=== PATIENT | male | born 1955 | race Caucasian/White ===

== ENCOUNTER 2019-05-30 11:07 | Day surgery (SDC) | payer OTHER ==
[~2019-05-30] VITALS: Ht 167.6 cm; Wt 74.2 kg
[~2019-05-30 11:07] MED LIST: AMLO5; ASPI325; ATOR80; GEMF600; JARDIANCE10 MG; LOSARTAN-HCTZ1 EAC1; METF500; VICTOZA 3-0.6 MG/0.1; Viagra100 MG
== END 2019-05-30 14:00 | disposition home or self-care (01) ==
LOC: ORSCSDS 11:07
PROVIDERS: Student in an Organized Health Care Education/Training Program
PROC: 0DBL8ZX Excision of Transverse Colon, Via Natural or Artificial Opening Endoscopic, Diagnostic (ICD-10-PCS; principal; 2019-05-30 12:30)
DX: Z12.11 Encounter for screening for malignant neoplasm of colon (principal); D12.3 Benign neoplasm of transverse colon; K57.30 Diverticulosis of large intestine without perforation or abscess without bleeding; I10 Essential (primary) hypertension; K64.8 Other hemorrhoids; E11.9 Type 2 diabetes mellitus without complications; Z79.899 Other long term (current) drug therapy
CPT/HCPCS: 82947; 88305; J2704; J7120

== ENCOUNTER 2020-05-24 10:18 | Inpatient (IN) | payer OTHER, SELFPAY ==
[~2020-05-24] VITALS: Ht 167.6 cm; Wt 80.7 kg
[~2020-05-24 10:18] MED LIST changes: -AMLO5; -ASPI325; -ATOR80; -GEMF600; -JARDIANCE10 MG; +JARDIANCE10 MG PO; -LOSARTAN-HCTZ1 EAC1; -METF500; -VICTOZA 3-0.6 MG/0.1
[2020-05-24 10:56] LABS: BASOPHILS ABSOLUTE AUTO 0.13 K/mm3 (0.00-0.23); BASOPHILS PERCENT AUTO 1 % (0-2); EOSINOPHILS PERCENT AUTO 3 % (0-6); Hematocrit 40.6 % (37.0-53.0); Hemoglobin 13.2 g/dL (13.5-17.5); IMMATURE GRAN ABSOLUTE AUTO 0.09 K/mm3 (0.00-0.10); IMMATURE GRAN PERCENT AUTO 1 % (0-1); LYMPHOCYTES ABSOLUTE AUTO 1.27 K/mm3 (0.84-5.20); LYMPHOCYTES PERCENT AUTO 14 % (21-46); MONOCYTES ABSOLUTE AUTO 0.78 K/mm3 (0.16-1.47); MONOCYTES PERCENT AUTO 9 % (4-13); Mean Corpuscular HGB 29.3 pg (26.0-34.0); Mean Corpuscular HGB Conc 32.5 g/dL (31.5-36.5); Mean Corpuscular Volume 90 fL (80-100); Mean Platelet Volume 9.1 fL (9.1-12.4); NEUTROPHILS ABSOLUTE AUTO 6.51 K/mm3 (1.96-9.15); NEUTROPHILS PERCENT AUTO 72 % (41-73); Platelet Count 359 K/mm3 (150-400); RDW Coefficient Variation 13.4 % (11.7-14.2); RDW Standard Deviation 43.8 fL (35.1-46.3); Red Blood Cell Count 4.51 M/mm3 (4.30-5.90); White Blood Cell Count 9.08 K/mm3 (4.00-11.30)
[2020-05-24 11:16] LABS: Alanine Aminotransfer (ALT/SGP 28 U/L (12-78); Albumin, Blood 3.9 g/dL (3.4-5.0); Albumin/Globulin Ratio 0.8 (0.8-1.8); Alk Phos 111 U/L (50-136); Anion Gap 8 mmol/L (6-16); Aspartate Aminotrans (AST/SGOT 31 U/L (12-37); Bilirubin, Total 0.4 mg/dL (0.1-1.0); Blood Urea Nitrogen 23 mg/dL (8-24); CO2, Blood 23 mmol/L (21-32); Calcium, Blood 9.9 mg/dL (8.5-10.1); Chloride, Blood 109 mmol/L (98-108); Creatinine, Blood 0.88 mg/dL (0.60-1.20); Globulin, Blood 4.7 g/dL (2.2-4.0); Glomerular Filtration Rate >60 (60-); Glucose, Blood 119 mg/dL (70-99); Potassium, Blood 4.3 mmol/L (3.5-5.5); Sodium, Blood 140 mmol/L (136-145); Total Protein, Blood 8.6 g/dL (6.4-8.2)
[2020-05-24 11:17] LABS: Troponin I <0.015 ng/mL (0.000-0.040)
[2020-05-24 12:27] LABS: Influenza A, PCR NEGATIVE (NEGATIVE); Influenza B, PCR NEGATIVE (NEGATIVE); Resp Syncytial Virus, PCR NEGATIVE (NEGATIVE); SARS-Cov-2 (COVID-19) PCR, MMC NEGATIVE (NEGATIVE)
[2020-05-25 05:17] LABS: BASOPHILS PERCENT AUTO 1 % (0-2); EOSINOPHILS PERCENT AUTO 3 % (0-6); Hematocrit 35.4 % (37.0-53.0); Hemoglobin 11.7 g/dL (13.5-17.5); IMMATURE GRAN ABSOLUTE AUTO 0.07 K/mm3 (0.00-0.10); IMMATURE GRAN PERCENT AUTO 1 % (0-1); LYMPHOCYTES ABSOLUTE AUTO 1.08 K/mm3 (0.84-5.20); LYMPHOCYTES PERCENT AUTO 11 % (21-46); MONOCYTES ABSOLUTE AUTO 0.87 K/mm3 (0.16-1.47); MONOCYTES PERCENT AUTO 9 % (4-13); Mean Corpuscular HGB 29.3 pg (26.0-34.0); Mean Corpuscular HGB Conc 33.1 g/dL (31.5-36.5); Mean Corpuscular Volume 89 fL (80-100); Mean Platelet Volume 9.1 fL (9.1-12.4); NEUTROPHILS ABSOLUTE AUTO 7.53 K/mm3 (1.96-9.15); NEUTROPHILS PERCENT AUTO 76 % (41-73); Platelet Count 349 K/mm3 (150-400); RDW Coefficient Variation 13.4 % (11.7-14.2); RDW Standard Deviation 43.5 fL (35.1-46.3); Red Blood Cell Count 3.99 M/mm3 (4.30-5.90); White Blood Cell Count 9.95 K/mm3 (4.00-11.30)
[2020-05-25 05:42] LABS: Anion Gap 7 mmol/L (6-16); Blood Urea Nitrogen 27 mg/dL (8-24); Bun/Creatinine Ratio 27.6 (12.0-20.0); CO2, Blood 24 mmol/L (21-32); Calcium, Blood 9.3 mg/dL (8.5-10.1); Chloride, Blood 107 mmol/L (98-108); Creatinine, Blood 0.98 mg/dL (0.60-1.20); Glomerular Filtration Rate >60 (60-); Glucose, Blood 131 mg/dL (70-99); Potassium, Blood 4.4 mmol/L (3.5-5.5); Sodium, Blood 138 mmol/L (136-145)
[2020-05-25 05:44] LABS: Troponin I <0.015 ng/mL (0.000-0.040)
[2020-05-25] MEDS ORDERED: Acetaminophen325 M1 PO (12:43)
[2020-05-25] MEDS ORDERED: AZIT500 PO (12:45)
[2020-05-25] MEDS ORDERED: CEFP200 PO (12:46)
[2020-05-25] MEDS ORDERED: CODEINE-GUAIFE120 M1 PO (12:47)
[2020-05-25] MEDS ORDERED: CRANBERRY CONC1 EAC1 PO (12:49)
[2020-05-25] MEDS ORDERED: FAMO20 PO (12:50)
[2020-05-25] MEDS ORDERED: FURO20 PO (12:50)
[2020-05-25] MEDS ORDERED: HYDRA25 PO (12:51)
[2020-05-25] MEDS ORDERED: NICO21TP TOP (12:52)
[2020-05-25] MEDS ORDERED: ONDA4ODT MM (12:53)
== END 2020-05-25 16:18 | disposition home or self-care (01) | DRG 196 ==
LOC: ER 10:18 → MEDS 16:24 → ENPENDDIS 05-25 10:43 → MEDS 05-25 16:18
PROVIDERS: Emergency Medicine; ADMIT Family Medicine
DX: J84.9 Interstitial pulmonary disease, unspecified (principal); J96.01 Acute respiratory failure with hypoxia; J81.1 Chronic pulmonary edema; Z79.82 Long term (current) use of aspirin; E11.9 Type 2 diabetes mellitus without complications; I10 Essential (primary) hypertension; E78.00 Pure hypercholesterolemia, unspecified; Z20.822 Contact with and (suspected) exposure to COVID-19; Z87.891 Personal history of nicotine dependence; Z98.52 Vasectomy status; Z79.84 Long term (current) use of oral hypoglycemic drugs; I16.0 Hypertensive urgency
CPT/HCPCS: 0241U; 36415; 71045; 71260; 80048; 80053; 82947; 83605; 83735; 83880; 84145; 84443; 84484; 85025; 85379; 85651; 93005; 93010; 93306; 99285-25; A9270; J0360; J0696; J1650; J1940; J7030; Q9967

== ENCOUNTER 2020-06-11 13:34 | Inpatient (IN) | payer OTHER ==
[~2020-06-11] VITALS: Ht 175.3 cm; Wt 78.0 kg
[~2020-06-11 13:34] MED LIST changes: +AZIT500 PO; +Acetaminophen325 M1 PO; +CEFP200 PO; +CODEINE-GUAIFE120 M1 PO; +CRANBERRY CONC1 EAC1 PO; +FAMO20 PO; +FURO20 PO; +HYDRA25 PO; +NICO21TP TOP; +ONDA4ODT MM
[2020-06-11 14:37] LABS: BASOPHILS ABSOLUTE AUTO 0.19 K/mm3 (0.00-0.23); BASOPHILS PERCENT AUTO 1 % (0-2); EOSINOPHILS ABSOLUTE AUTO 0.31 K/mm3 (0.00-0.68); EOSINOPHILS PERCENT AUTO 2 % (0-6); Hematocrit 35.2 % (37.0-53.0); Hemoglobin 11.6 g/dL (13.5-17.5); IMMATURE GRAN ABSOLUTE AUTO 0.15 K/mm3 (0.00-0.10); IMMATURE GRAN PERCENT AUTO 1 % (0-1); LYMPHOCYTES ABSOLUTE AUTO 0.71 K/mm3 (0.84-5.20); LYMPHOCYTES PERCENT AUTO 5 % (21-46); MONOCYTES ABSOLUTE AUTO 1.46 K/mm3 (0.16-1.47); MONOCYTES PERCENT AUTO 9 % (4-13); Mean Corpuscular HGB 29.2 pg (26.0-34.0); Mean Corpuscular Volume 89 fL (80-100); Mean Platelet Volume 8.7 fL (9.1-12.4); NEUTROPHILS ABSOLUTE AUTO 12.87 K/mm3 (1.96-9.15); NEUTROPHILS PERCENT AUTO 82 % (41-73); Platelet Count 420 K/mm3 (150-400); RDW Coefficient Variation 14.3 % (11.7-14.2); RDW Standard Deviation 46.3 fL (35.1-46.3); Red Blood Cell Count 3.97 M/mm3 (4.30-5.90); White Blood Cell Count 15.69 K/mm3 (4.00-11.30)
[2020-06-11 14:57] LABS: Alanine Aminotransfer (ALT/SGP 16 U/L (12-78); Albumin, Blood 2.8 g/dL (3.4-5.0); Albumin/Globulin Ratio 0.5 (0.8-1.8); Alk Phos 98 U/L (50-136); Anion Gap 11 mmol/L (6-16); Aspartate Aminotrans (AST/SGOT 28 U/L (12-37); Bilirubin, Total 0.4 mg/dL (0.1-1.0); Blood Urea Nitrogen 48 mg/dL (8-24); Bun/Creatinine Ratio 39.7 (12.0-20.0); CO2, Blood 18 mmol/L (21-32); Calcium, Blood 9.8 mg/dL (8.5-10.1); Chloride, Blood 108 mmol/L (98-108); Creatinine, Blood 1.21 mg/dL (0.60-1.20); Globulin, Blood 5.1 g/dL (2.2-4.0); Glomerular Filtration Rate >60 (60-); Glucose, Blood 105 mg/dL (70-99); Potassium, Blood 4.7 mmol/L (3.5-5.5); Sodium, Blood 137 mmol/L (136-145); Total Protein, Blood 7.9 g/dL (6.4-8.2); Troponin I <0.015 ng/mL (0.000-0.040)
[2020-06-11] MEDS ORDERED: MOXI400 PO (15:50)
[2020-06-12 04:38] LABS: BASOPHILS PERCENT AUTO 1 % (0-2); EOSINOPHILS ABSOLUTE AUTO 0.63 K/mm3 (0.00-0.68); EOSINOPHILS PERCENT AUTO 5 % (0-6); Hematocrit 33.8 % (37.0-53.0); Hemoglobin 10.8 g/dL (13.5-17.5); IMMATURE GRAN ABSOLUTE AUTO 0.12 K/mm3 (0.00-0.10); IMMATURE GRAN PERCENT AUTO 1 % (0-1); LYMPHOCYTES ABSOLUTE AUTO 0.89 K/mm3 (0.84-5.20); LYMPHOCYTES PERCENT AUTO 6 % (21-46); MONOCYTES ABSOLUTE AUTO 1.38 K/mm3 (0.16-1.47); MONOCYTES PERCENT AUTO 10 % (4-13); Mean Corpuscular Volume 91 fL (80-100); Mean Platelet Volume 8.7 fL (9.1-12.4); NEUTROPHILS ABSOLUTE AUTO 10.89 K/mm3 (1.96-9.15); NEUTROPHILS PERCENT AUTO 77 % (41-73); Platelet Count 384 K/mm3 (150-400); RDW Coefficient Variation 14.4 % (11.7-14.2); RDW Standard Deviation 47.7 fL (35.1-46.3); Red Blood Cell Count 3.72 M/mm3 (4.30-5.90); White Blood Cell Count 14.11 K/mm3 (4.00-11.30)
[2020-06-12 05:16] LABS: Bun/Creatinine Ratio 37.2 (12.0-20.0); Calcium, Blood 9.4 mg/dL (8.5-10.1); Creatinine, Blood 1.29 mg/dL (0.60-1.20); Potassium, Blood 4.3 mmol/L (3.5-5.5)
--- NOTE | 2020-06-12 05:42 | NUR ---
SHIFT SUMMARY- PT. NEW ADMIT FROM ED, ARRIVED VIA STRETCHER. A&OX4, C/O WEAKNESS AND SOB WITH EXERTION. ON 4L OF O2 WITH SATS AT 91-93%, SBA TO THE BATHROOM. PT. HAD NO COMPLAINTS DURING THE NIGHT. RESTED QUIETLY IN BED T/O THE NIGHT, NO APPARENT DISTRESS NOTED. IV FLUIDS INFUSING W/SCHEDULED ABX'S, TOLERATING WELL. VSS. CALL LIGHT WITHIN REACH AND SIDE RAILS UPX2. WILL CONT TO MONITOR.
[2020-06-12 13:12] LABS: Influenza A, PCR NEGATIVE (NEGATIVE); Influenza B, PCR NEGATIVE (NEGATIVE); Resp Syncytial Virus, PCR NEGATIVE (NEGATIVE); SARS-Cov-2 (COVID-19) PCR, MMC NEGATIVE (NEGATIVE)
--- NOTE | 2020-06-12 18:01 | NUR ---
PATIENT A/OX4, UP WITH SBA TO BATHROOM. SOB WITH ACTIVITY AND AT REST AT TIMES. 10LO2 VIA OXIMIZER TO MAINTAIN SATS. VSS, SR WITH PAC'S ON TELE IN THE 80'S. DENIES ANY PAIN. COVID/FLU NEGATIVE. 20G IV TO L AC WNL AND SL BETWEEN ABX. LASIX GIVEN THIS AM WITH GOOD OUTPUT. LUNGS WITH CRACKLES IN THE BASES, NONPRODUCTIVE COUGH. ACHS BLOOD SUGARS, TOLERATING ADA DIET. PLANS TO TRANSFER TO PCU WHEN BED AVAILABLE.
--- NOTE | 2020-06-12 19:49 | NUR ---
1944 PT MOVED VIA BED AND ALL PERSONAL BELONGINGS WITH AT SIDE TO PCU-10 WITH PORTABLE O2 TANK; PTS CHART AND ALL MEDS TAKEN TO PCU; CT RN AT SIDE IN PCU.
--- NOTE | 2020-06-13 05:15 | NUR ---
SHIFT SUMMARY PT TRANSFERED FROM MEDICAL FLOOR APPROXIMATELY @ 2150; SPOUSE AT BEDSIDE; TO SEE PT DUE TO INCREASED O2 REQUIREMENTS; PT A&O X 3-4; IRRITABLE AT TIMES; DENIES CHEST PAIN; VSS; PT WAS UNABLE TO TOLERATE AIRVO; O2 SATS >93 ON BIPAP ON CPAP SETTING; C/O MASK AFTER A FEW HOURS AND REQUIRING BREAK; 15L OXYMIZER USED; USES URINAL IN BED; WASH RAG AND TOWEL BROUGHT TO PT TO CLEAN UP; CURRENTLY RESTING IN BED; NO DISTRESS NOTED; CALL LIGHT IN REACH; BED IN LOWEST POSITION; WILL CONTINUE TO MONITOR CLOSELY UNTIL HAND OFF TO DAY SHIFT RN.
[2020-06-13 05:19] LABS: BASOPHILS PERCENT AUTO 1 % (0-2); EOSINOPHILS ABSOLUTE AUTO 0.01 K/mm3 (0.00-0.68); EOSINOPHILS PERCENT AUTO 0 % (0-6); Hematocrit 34.7 % (37.0-53.0); Hemoglobin 11.3 g/dL (13.5-17.5); IMMATURE GRAN ABSOLUTE AUTO 0.12 K/mm3 (0.00-0.10); IMMATURE GRAN PERCENT AUTO 1 % (0-1); LYMPHOCYTES ABSOLUTE AUTO 0.31 K/mm3 (0.84-5.20); LYMPHOCYTES PERCENT AUTO 2 % (21-46); MONOCYTES ABSOLUTE AUTO 0.54 K/mm3 (0.16-1.47); MONOCYTES PERCENT AUTO 4 % (4-13); Mean Corpuscular HGB 29.2 pg (26.0-34.0); Mean Corpuscular HGB Conc 32.6 g/dL (31.5-36.5); Mean Corpuscular Volume 90 fL (80-100); Mean Platelet Volume 8.7 fL (9.1-12.4); NEUTROPHILS ABSOLUTE AUTO 13.76 K/mm3 (1.96-9.15); NEUTROPHILS PERCENT AUTO 93 % (41-73); Platelet Count 436 K/mm3 (150-400); RDW Coefficient Variation 14.3 % (11.7-14.2); RDW Standard Deviation 46.3 fL (35.1-46.3); Red Blood Cell Count 3.87 M/mm3 (4.30-5.90); White Blood Cell Count 14.84 K/mm3 (4.00-11.30)
[2020-06-13 05:42] LABS: Anion Gap 10 mmol/L (6-16); Blood Urea Nitrogen 46 mg/dL (8-24); Bun/Creatinine Ratio 38.7 (12.0-20.0); CO2, Blood 21 mmol/L (21-32); Calcium, Blood 9.6 mg/dL (8.5-10.1); Chloride, Blood 110 mmol/L (98-108); Creatinine, Blood 1.19 mg/dL (0.60-1.20); Glomerular Filtration Rate >60 (60-); Glucose, Blood 181 mg/dL (70-99); Potassium, Blood 4.5 mmol/L (3.5-5.5); Sodium, Blood 141 mmol/L (136-145); Vancomycin, Trough 19.3 ug/mL (5.0-10.0)
--- NOTE | 2020-06-13 19:28 | NUR ---
SUMMARY PT IS A&O X3, VSS, ON AIRVO 50 L FIO2 69%, SPO2 >93%. PT WAS UP TO THE CHAIR FOR A FEW HOURS TODAY & WAS ABLE TO SPONGE BATHE IN FRONT OF THE SINK WHILE WEARING THE AIRVO, TOLERATED WNL. ORLANDO BURRELL COMPLETED, PT'S IN TO VISIT THIS EVENING. NO OTHER ACUTE CHANGES NOTED. REPORT GIVEN TO LEOPOLDO ROJAS. CALL LIGHT IN REACH
[2020-06-14 03:51] LABS: BASOPHILS ABSOLUTE AUTO 0.04 K/mm3 (0.00-0.23); BASOPHILS PERCENT AUTO 0 % (0-2); EOSINOPHILS ABSOLUTE AUTO 0.01 K/mm3 (0.00-0.68); EOSINOPHILS PERCENT AUTO 0 % (0-6); Hematocrit 31.1 % (37.0-53.0); Hemoglobin 10.1 g/dL (13.5-17.5); IMMATURE GRAN ABSOLUTE AUTO 0.16 K/mm3 (0.00-0.10); IMMATURE GRAN PERCENT AUTO 1 % (0-1); LYMPHOCYTES ABSOLUTE AUTO 0.53 K/mm3 (0.84-5.20); LYMPHOCYTES PERCENT AUTO 4 % (21-46); MONOCYTES ABSOLUTE AUTO 0.57 K/mm3 (0.16-1.47); MONOCYTES PERCENT AUTO 4 % (4-13); Mean Corpuscular HGB 28.8 pg (26.0-34.0); Mean Corpuscular HGB Conc 32.5 g/dL (31.5-36.5); Mean Corpuscular Volume 89 fL (80-100); Mean Platelet Volume 8.8 fL (9.1-12.4); NEUTROPHILS ABSOLUTE AUTO 11.86 K/mm3 (1.96-9.15); NEUTROPHILS PERCENT AUTO 90 % (41-73); Platelet Count 420 K/mm3 (150-400); RDW Standard Deviation 45.2 fL (35.1-46.3); Red Blood Cell Count 3.51 M/mm3 (4.30-5.90); White Blood Cell Count 13.17 K/mm3 (4.00-11.30)
[2020-06-14 04:10] LABS: Anion Gap 8 mmol/L (6-16); Blood Urea Nitrogen 45 mg/dL (8-24); CO2, Blood 23 mmol/L (21-32); Calcium, Blood 9.8 mg/dL (8.5-10.1); Chloride, Blood 108 mmol/L (98-108); Creatinine, Blood 0.87 mg/dL (0.60-1.20); Glomerular Filtration Rate >60 (60-); Glucose, Blood 237 mg/dL (70-99); Potassium, Blood 4.6 mmol/L (3.5-5.5); Sodium, Blood 139 mmol/L (136-145)
--- NOTE | 2020-06-14 05:48 | NUR ---
SHIFT SUMMARY PT A&O X 4; SPOUSE AT BEDSIDE FIRST HOUR OF SHIFT; DENIES CHEST PAIN; VSS; O2 SATS >93 ON AIRVO; PT EDUCATION PROVIDED ON SWALLOW PRECAUTIONS; PT DENIES NEEDS AND IS ARGUMENTATIVE REGARDING INSTRUCTION; USES URINAL IN BED; PT SLEPT SEVERAL HOURS IN BETWEEN INTERVENTIONS; CALL LIGH IN REACH; BED IN LOWEST POSITION; WILL CONTINUE TO MONORINTOR SLOSELY UNTIL HAND OFF TO DAY SHIFT RN.
--- NOTE | 2020-06-14 12:50 | NUR ---
RESP STATUS CONT BIOX ALARM WAS GOING OFF, SPO2 OF 84% SHOWING ON THE MONITOR, PT WAS SHALLOW BREATHING AND HALF ASLEEP, PT RESPONSIVE, ENC TO DEEP BREATHE & COUGH, PT STOOD @ BEDSIDE PER HIS REQUEST TO "TAKE IN MORE AIR", RT IN ROOM, FIO2 HAD BEEN TURNED DOWN TO 40% PER PREVIOUSLY THIS AM, FIO2 INCREASED AT THIS TIME, PT CONTINUED TO COUGH & STRUGGLED TO BRING HIS SATS UP, BREATHING RX GIVEN PER RT, PT ASSISTED BACK TO BED, FIO2 INCREASED TO 100% PER RT & 60 L VIA AIRVO, PT REFUSING BIPAP. NOTIFIED PER RT, PT FINALLY STARTED TO STABILIZE, HE WAS ABLE TO COUGH UP THICK, CLEAR MUCOUS. CURRENT AIRVO SETTINGS ARE 60 L FIO2 84%. PT IS AWAKE, ALERT & ORIENTED X3,RESTING IN BED, CALL LIGHT IN REACH, WCTM AND SLOWLY TITRATE FIO2 BACK DOWN PER VERBAL ORDER FROM .
[2020-06-14 18:32] LABS: Source, Urine Voided
[2020-06-14 18:34] LABS: Appearance, Urine Clear (Clear); Bilirubin, Urine Neg (Neg); Blood, Urine Neg (Neg); Color, Urine Yellow (P-Yellow); Glucose Qualitative, Urine 4+ (Neg); Ketones, Urine Neg (Neg); Leukocyte Esterase, Urine Neg (Neg); Nitrite, Urine Neg (Neg); Protein, Urine 2+ (Neg); Urobilinogen, Urine NORM (Normal)
[2020-06-14 18:46] LABS: Bacteria Few /hpf; Hyaline Casts 0-2 /lpf (0-2); Red Blood Cells, Urine 0-2 /hpf (0-2); Squamous Epithelial Cells Few /hpf (Few); White Blood Cells, Urine 0-2 /hpf (0-5)
--- NOTE | 2020-06-15 06:48 | NUR ---
SHIFT SUMMARY PT A&O X 4; DENIES CHEST PAIN; VSS; O2 SATS >93 ON AIRVO 60 / 60; PT MAINTAINED SATS WELL T/O SHIFT; POWERGLIDE PLACED BY FINISH CARPENTER IN ALEISHA; USES URINAL IN BED; MEDS IN APPLESAUCE W/ NO ISSUE; NO ACUTE CHANGES; CALL LIGHT IN REACH; BED IN LOWEST POSITION; WILL CONTINUE TO MONITOR CLOSELY UNTIL HAND OFF TO DAY SHIFT RN.
[2020-06-15 12:09] LABS: ANTI-DSDNA ANTIBODIES 3 IU/mL (0-9); ANTI-JO-1 <0.2 AI (0.0-0.9); ANTISCLERODERMA-70 ANTIBODIES <0.2 AI (0.0-0.9); RNP ANTIBODIES 0.3 AI (0.0-0.9); SJOGREN'S ANTI-SS-A <0.2 AI (0.0-0.9); SJOGREN'S ANTI-SS-B <0.2 AI (0.0-0.9)
--- NOTE | 2020-06-15 18:30 | NUR ---
SUMMARY PT HAS DONE WELL TODAY. HE HAS BEEN UP IN THE CHAIR MOST OF THE SHIFT. CURRENT AIRVO SETTINGS ARE 60 L 50% FIO2, SPO2 BETWEEN 90-94%, OTHER VSS. RESP UNLABORED AT REST, DYSPNEA W/ACTIVITY. DECREASED APPETITE NOTED, VOIDING WNL. PALLIATIVE CARE CONSULT PLACED, CASE MANAGEMENT WAS IN TO SPEAK WITH PT TODAY. WCTM & REPORT TO NOC RN. CALL LIGHT IN REACH, IS AT THE BEDSIDE.
[2020-06-16 05:08] LABS: PCO2 Arterial 43.7 mmHg (35-45); PO2 Arterial 59.5 mmHg (80-100); pH Blood Arterial 7.35 (7.35-7.45)
--- NOTE | 2020-06-16 06:03 | NUR ---
SHIFT SUMMARY PT IS ALERT AND ORIENTED. THERE HAVE BEEN NO ACUTE CHANGES AND VITALS HAVE BEEN STABLE. PT HAS BEEN SATING >92% ON AIRVO WITH 60LPM AND 38% FIO2. PT IS ON SWALLOW PRECAUTIONS AND HAS NOT HAD ANY ASPIRATION PROBLEMS THROUGHTOUT THE NIGHT.
--- NOTE | 2020-06-16 17:51 | NUR ---
SHIFT SUMMARY PT ALERT AND ORIENTED. BP STABLE. HR STABLE. O2 SATS HAVE REMAINED ABOVE 90% ON 50L ARIVO 40% FIO2. PT ABLE TO TOLERATE AMBULATING TO THE BATHROOM AND TAKING A SHOWER. PT DID HAVE BLOODY SPUTUM THIS AM, BUT HAS NOT HAD ANY OTHER SPUTUM PRODUCTION THIS SHIFT. DR. PROCTOR AWARE. PG SALINE LOCKED. PT DENIES ANY PAIN. WILL CONTINUE TO MONITOR AND REPORT TO ONCOMING RN. CALL LIGHT IN REACH.
--- NOTE | 2020-06-17 05:09 | NUR ---
SHIFT SUMMARY PT A&OX4. SP02>90% ON AIRVO 50L. PT SOB W/ ANY EXERTION. PT HAS NO TELEMETRY. PT DENIES PAIN. PT USED URINAL TO VOID. MEDS WHOLE IN APPLESAUCE. PT SLEPT T/O NIGHT. AT BEGINNING OF SHIFT, PT'S , WILLARD, CALLED FOR UPDATE. PT'S STATED CONCERNS W/ BRONCHOSCOPY, STATING SHE HAS BEEN RESEARCHING ALTERANTIVE PROCEDURES AND WOULD LIKE TO DISCUSS THEM WITH THE OB/GYN DOCTOR PRIOR TO PROCEDURE. CALL LIGHT IN REACH. WILL GIVE REPORT TO ONCOMING NURSE.
--- NOTE | 2020-06-17 09:48 | NUR ---
ASSUMED CARE FROM LEOPOLDO RN PT WAS SLEEPING DURING MORNING REPORT. PT SOON WOKE AFTER FOR MORNING MEDICATIONS. PT WAS GIVEN MEDS IN APPLESAUCE THIS MORNING. PT WAS POSSIBLY SCHEDULED FOR A BRONCHOSCOPY THIS MORNING BUT PULMONOLGY DECIDED AGAINST THIS SINCE PT'S O2 NEEDS HAVE DECREASED. PT IS NOW RESTING IN BED WATCHING TV.
[2020-06-17 14:11] LABS: ANTIMYELOPEROXIDASE (MPO) ABS <9.0 U/mL (0.0-9.0)
--- NOTE | 2020-06-17 15:09 | NUR ---
Spiritual care visit conducted. Patient is sitting up in bde and alert. Patient tells me about his medical conditions and the struggle he has had with depression because of the limitations his inability to breath and ambulate. He told me personal information regarding these struggles. He also told me about his love [place] the [place]. We discuss his marcellus in God but not in church. While we are talking patient's spouse, Deirdre enters the rm and joins the conversation and patient states that she is the driving spiritual force in the family. I normalize the struggle and the their feelings about that struggle, reinforce helpful attitudes, explore sources of meaning and purpose, and provide therapeutic listening, spiritual guidance and prayer. Patient responds well and shows signs of improved hope. I will continue to remain available to patient and family.
--- NOTE | 2020-06-17 18:02 | NUR ---
SHIFT SUMMARY PT HAS REMAINED ON AIRVO BUT HAS BEEN TITRATED DOWN TO 45L AND 35% FIO2 THROUGHOUT THE DAY. PT HAS BEEN VISITING WITH HIS ON AND OFF THIS AFTERNOON. PT WAS ABLE TO WALK TO THE BATHROOM THIS AFTERNOON TO HAVE A BM AND WAS NOT SHORT OF BREATH BUT HIS O2 SATURATION DROPPED BUT HE QUICKLY RECOVERED AFTER SITTING DOWN. PT HAS BEEN IN THE CHAIR THIS EVENING HAVING DINNER AND WATCHING TV. VS HAVE BEEN STABLE OTHER THAN THE O2 NEEDS.
--- NOTE | 2020-06-17 19:30 | NUR ---
ASSUMED CARE RECEIVED BEDSIDE REPORT FROM CRYSTAL TRONCOSO; PT A&O X 4; FLAT DISPOSITION; BRAND SALES MANAGER EUSEBIO REMINDED SPOUSE OF VISITING HOURS AND WHEN SHE CAN COME BACK FOR VISITATION; O2 SATS >93 ON AIRVO 45L 35%; DENIES CHEST PAIN; VSS; BELONGINGS AND CALL LIGHT IN REACH; BED IN LOWEST POSITION.
[2020-06-17 21:06] LABS: CCP ANTIBODIES IGG/IGA 5 units (0-19)
--- NOTE | 2020-06-18 05:19 | NUR ---
SHIFT SUMMARY PT A&O X 4; DENIES CHEST PAIN; VSS; O2 SATS >93 ON AIRVO SETTINGS, TITRATED PER RT; USES URINAL IN BED; PT SLEPT SEVERAL HOURS; NO ACUTE CHANGES THIS SHIFT; CALL LIGHT IN REACH; BED IN LOWEST POSITION; WILL CONTINUE TO MONITOR CLOSELY UNTIL HAND OFF TO DAY SHIFT RN.
--- NOTE | 2020-06-18 07:23 | NUR ---
ASSUMED CARE FROM NOC RN PT WAS AWAKE AND PARTICIPATED IN MORNING REPORT. VS STABLE, OXYGEN NEEDS WERE TITRATED DOWN DURING THE NOC SHIFT. PT IS AWAKE, WATCHING TV AND HAVING HIS MORNING COFFEE AT THIS TIME. PT DENIES PAIN AND DISCOMFORT.
--- NOTE | 2020-06-18 17:18 | NUR ---
SHIFT SUMMARY PT BEGAN THE SHIFT ON HIGH FLOW OXYGEN VIA AIRVO, PT HAS BEEN TITRATED DOWN THROUGHOUT THE DAY AND IS NOW ON 3L O2 VIA NC AT REST AND APPROXIMATELY 10L VIA HIGH FLOW NC WITH ACTIVITY. VS STABLE, PT MAINTAINING SATURATION AT OR ABOVE 92% ON 3L NC. PT WAS ABLE TO WORK WITH PHYSICAL THERAPY THIS AFTERNOON. PT HAS RECEIVED VEST THERAPY WITH RESPIRATORY CARE AND HAS A FLUTTER VALVE AT THE BEDSIDE AND HAS BEEN ENCOURAGED TO USE IT. PT REMAINS IN SR HR 70s-80s. PT SITTING IN THE CHAIR AT THIS TIME HAVING DINNER.
--- NOTE | 2020-06-18 19:40 | NUR ---
ASSUMED CARE RECEIVED BEDSIDE REPORT FROM CRYSTAL PHAM; PT SLEEPING; VSS; O2 SATS >93 ON 5L NC; TITRATION NEEDED PRN; NO DISTRESS NOTED; BELONGINGS AND CALL LIGHT IN REACH; BED IN LOWEST POSITION.
--- NOTE | 2020-06-19 04:43 | NUR ---
SHIFT SUMMARY PT A&O X 4; FLAT; DENIES CHEST PAIN; VSS; NO TELE ORDER; O2 SATS >93 ON 5L NC; TITRATED W/ ACTIVITY; RT TO BEDSIDE FOR CPT AND BREATHING TX; INDEPENDENT IN ROOM; SLEPT SEVERAL HOURS IN BETWEEN INTERVENTION; CALL LIGHT IN REACH; BED IN LOWEST POSITION; WILL CONTINUE TO MONITOR CLOSELY UNTIL HAND OFF TO DAY SHIFT RN.
--- NOTE | 2020-06-19 09:46 | NUR ---
ASSUMED CARE FROM [facility] RN PT WAS AWAKE DURING MORNING REPORT AND PARTICIPATED IN REPORT. PT WAS READY TO GET UP AND USE THE BATHROOM AND GET IN THE CHAIR EARLY THIS MORNING FOR BREAKFAST. PT REPORTS PAIN IN HIS BACK AND BOTTOM FROM PREVIOUS INJURIES AND FROM SITTING/LAYING IN BED FOR THE LAST FEW DAYS. PT HAS BEGUN WORKING WITH PHYSICAL AND OCCUPATIONAL THERAPY TO INCREASE ACTIVITY TOLERANCE AND HELP WITH SORENESS. PT HAD LINENS CHANGED AND WORKED WITH RESPIRATORY THERAPY THIS MORNING WELL. PT WATCHING TV IN HIS CHAIR AT THIS TIME
--- NOTE | 2020-06-19 17:51 | NUR ---
SHIFT SUMMARY PT REMAINS ON NC AND HAS SUSTAINED 92% AND ABOVE WITH 5L O2 AT REST AND UP TO 10L FOR ACTIVITY. PT WAS ABLE TO HAVE A SHOWER THIS AFTERNOON AND WAS ABLE TO DO SO WITH SBA. PT HAS WORKED WITH OCCUPATIONAL AND PHYSICAL THERAPY TODAY WELL. BP WAS ELEVATED THIS AFTERNOON, WILL RECHECK OTHERWISE VS STABLE. PT VISITED WITH A FRIEND THIS AFTERNOON. PT HAS BEEN CHANGED TO MEDICAL STATUS. PT IS IN HIS CHAIR RESTING IN HIS ROOM AT THIS TIME
--- NOTE | 2020-06-19 21:26 | NUR ---
ASSUMPTION OF CARE PT RESTING IN BED, AROUSES TO VERBAL STIMULI, ORIENTED x4, VSS ON 5L PER HUMIDIFIED HI-FLOW NC, LUNG SOUNDS CLEAR WITH CRACKLS IN THE BASES. PT DENIES GI/ ISSUES, SWALLOWS PILLS WHOLE WITH APPLESAUCE, MOVES SELF INDEPENDENLTY IN BED. CALL LIGHT WITHIN REACH.
[2020-06-20 04:50] LABS: Albumin, Blood 2.6 g/dL (3.4-5.0); Anion Gap 5 mmol/L (6-16); Blood Urea Nitrogen 58 mg/dL (8-24); Bun/Creatinine Ratio 67.8 (12.0-20.0); CO2, Blood 25 mmol/L (21-32); Calcium, Blood 9.6 mg/dL (8.5-10.1); Chloride, Blood 107 mmol/L (98-108); Creatinine, Blood 0.86 mg/dL (0.60-1.20); Glomerular Filtration Rate >60 (60-); Glucose, Blood 377 mg/dL (70-99); Phosphorus, Blood 3.6 mg/dL (2.5-4.9); Potassium, Blood 4.9 mmol/L (3.5-5.5); Sodium, Blood 137 mmol/L (136-145)
--- NOTE | 2020-06-20 05:52 | NUR ---
SHIFT SUMMARY NO ACUTE CHANGES THIS SHIFT, PT RESTED WELL T/O NIGHT. AWAKE THIS MORNING, ORIENTED x4, VSS ON 5L HUMIDIFIED NC. PT TOLERATING PO INTAKE, SWALLOWS PILLS WHOLE WITH APPLESAUCE. CALL LIGHT WITHIN REACH, PT USING APPROPRIATELY.
--- NOTE | 2020-06-20 07:47 | NUR ---
Received report from night nurse this AM. Pt is awake and a/o x 4 with no complaints at this time. VSS. CBG was elevated but pt denies any s/s of hyperglycemia and reports that it is only ever elevated when he is in the hospital. Pt is resting in bed watching TV with call light in reach.
--- NOTE | 2020-06-20 15:02 | NUR ---
Pt changed to med status and report called to receiving Rn. Pt is aware of transfer and agreeable. went to the store and when she returns we will assist pt to transfer to medical floor.
--- NOTE | 2020-06-20 15:06 | NUR ---
Pt has been a/o x 4 throughout the day with no complaints. He does have a flat affect but denies any pain. He has been working with RT today and has been SATing in the 90's on 4 LPM via NC. This morning he declined a shower but this afternoon when his arrived with clean clothes he was agreeable to get up and get in the shower. After ambulating from the shower chair to the recliner pt O2 Sat went down into the 80's, O2 was turned up to 6LPM and RT was notified, O2 Sat quickly went back up to 90 and RT initiated a TX, charge nurse was made aware. Pt is sitting up in the recliner while the MARINE GEOLOGIST is packing his personal belongings.
--- NOTE | 2020-06-20 15:28 | NUR ---
Pt transferred to room 324 via WC with SOCIAL WORK THERAPIST. All personal belongings sent with the pt and pt stable upon transfer.
--- NOTE | 2020-06-20 16:26 | NUR ---
PT IS A PCU TRANSFER, PT CAME IN DUE TO PNEUMONIA AND HYPOXIA. PMH ARE HTN AND DM. PT IS AC/HS. PT IS RECEIVING BREATHING TX AND O2 OF 4L. PT DESATS WHEN ACTIVITIES, MIGHT NEED TO INCREASE O2. PT IS A 1P ASSIST. PT IS ASPIRATION PRECAUTIONS. PT CAME IN DUE TO SOB, NONPRODUCTIVE COUGH, AND PROGRESSIVE WEAKNESS. PT LIVES WITH , AND AT BEDSIDE TODAY. PT HAS POWEGLIDE ALEISHA DRAWS WELL. PT ALSO RECEIVING CHEST PHYSIO. PT IS ON SOFT ADA DIET. BED IS IN THE LOWEST POSITION AND CALL LIGHT WITHIN REACH.
--- NOTE | 2020-06-21 04:37 | NUR ---
SHIFT SUMMARY NOC [id number] NOTIFIED LESLY ARREOLA CHANGED FROM MED TO HIGH, 1X 9U HUMALOG ADMIN, NO OTHER CHANGES, NO C/O ANY KIND, SLEPT T/O THE NIGHT & AT THIS TIME, CALL LIGHT IN REACH, WILL CONT TO MONITOR UNTIL REPORT GIVEN TO DAY RN.
--- NOTE | 2020-06-21 08:00 | NUR ---
CALLED THE DR FOR INSULIN COVERAGE OF THIS PT. RECEIVED AN ORDER OF 15 UNITS OF SHORT ACTING INSTEAD OF GIVING THE 17 UNITS.
--- NOTE | 2020-06-21 16:48 | NUR ---
SHIFT SUMMARY PT AOX4; INDEPENDENT TO THE BATHROOM. PT IS ON 4L OF O2 VIA NC. PT WILL BE DISCHARGE TOMORROW PER . PT DENIES PAIN OR ANY DISTRESS. BED IS IN THE LOWEST POSITION AND CALL LIGHT WITHIN REACH.
--- NOTE | 2020-06-22 04:43 | NUR ---
SHIFT SUMMARY: VSS. AFEB. 02 SAT 94% ON 4L VIA NC. LSCTA. OCCASIONAL WET SOUNDING, NON-PRODUCTIVE COUGH. DEEP BREATHING TRIGGERS COUGH. ENCOURAGED USE OF FLUTTER VALVE. DENIES CHEST PAIN OR PRESSURE. RESPS EVEN, NON-LABORED AT REST. NO ACUTE EVENTS OVERNIGHT. WCTM.
--- NOTE | 2020-06-22 14:18 | NUR ---
Spiritual care visit conducted. Patient is sitting up in bed and alert. Patient tells me about his personal struggles and how this long season of health issues has affected him negatively. We explore sources of value and meaning and talk about the spiritual/emotional support that maybe needed. Patient explains about his spiritual journey and how he has been more reflective while lying in bed. I normalize his experience, reinforce helpful attitudes and practices and provide spiritual guidance and prayer. Patient responds well and shows signs of being encoraged in his marcellus. I will continue to remain available to patient and family.
--- NOTE | 2020-06-22 17:08 | NUR ---
DISCHARGED HOME WITH PRESENT. BEDSIDE EDUCATION PROVIDED BY HOSPITALIST, OXYGEN SUPPLIER, RESPIRATORY THERAPIST, AND THIS RN. PATIENT AND VERBALIZED UNDERSTANDING OF DISCHARGE INSTRUCTIONS AND FOLLOW-UP. ALL QUESTIONS WERE ANSWERED TO PATIENT AND SATISFACTION. OXYGEN SUPPLIES SENT HOME WITH PATIENT AND MORE TO BE DELIVERED TO HOME THIS EVENING. ALL PERSONAL BELONGINGS IN PATIENT POSSESSION.
== END 2020-06-22 16:44 | disposition home health service (06) | DRG 871 ==
LOC: ER 13:34 → MEDS 18:42 → PCU 06-12 19:41 → MEDS 06-20 15:25
PROVIDERS: Hospitalist; Internal Medicine; Internal Medicine Critical Care Medicine; Internal Medicine Pulmonary Disease; Pharmacist; Physician Assistant; ADMIT Internal Medicine
DX: A41.9 Sepsis, unspecified organism (principal); J18.9 Pneumonia, unspecified organism; J96.01 Acute respiratory failure with hypoxia; Z20.822 Contact with and (suspected) exposure to COVID-19; J84.89 Other specified interstitial pulmonary diseases; R65.20 Severe sepsis without septic shock; E11.9 Type 2 diabetes mellitus without complications; I10 Essential (primary) hypertension; E78.5 Hyperlipidemia, unspecified; K21.9 Gastro-esophageal reflux disease without esophagitis; Z87.891 Personal history of nicotine dependence; Z98.890 Other specified postprocedural states; Z90.49 Acquired absence of other specified parts of digestive tract; Z79.82 Long term (current) use of aspirin; Z79.899 Other long term (current) drug therapy; Z79.84 Long term (current) use of oral hypoglycemic drugs
CPT/HCPCS: 0241U; 36415; 36600; 71045; 71250; 80048; 80053; 80069; 80202; 81001; 82085; 82550; 82803; 82947; 83036; 83520; 83605; 83880; 84145; 84484; 85025; 85651; 86038; 86140; 86200; 86225; 86235; 86431; 86762; 87040; 92526; 92610; 93005; 93010; 94640; 94660; 94667; 94668; 94760; 94761; 94762; 96365; 96366; 96367; 97110; 97161; 97166; 97530; 97535; 99285-25; A9270; C1751; J0692; J1650; J1940; J2920; J3370; J7030; J7050; J7120; J7512

== ENCOUNTER 2020-06-25 18:07 | Inpatient (IN) | payer OTHER ==
[~2020-06-25] VITALS: Ht 167.6 cm; Wt 69.9 kg
[~2020-06-25 18:07] MED LIST changes: +MOXI400 PO
[2020-06-25 20:53] LABS: BASOPHILS ABSOLUTE AUTO 0.06 K/mm3 (0.00-0.23); BASOPHILS PERCENT AUTO 0 % (0-2); EOSINOPHILS ABSOLUTE AUTO 0.01 K/mm3 (0.00-0.68); EOSINOPHILS PERCENT AUTO 0 % (0-6); Hematocrit 35.4 % (37.0-53.0); Hemoglobin 11.6 g/dL (13.5-17.5); IMMATURE GRAN ABSOLUTE AUTO 0.45 K/mm3 (0.00-0.10); IMMATURE GRAN PERCENT AUTO 3 % (0-1); LYMPHOCYTES ABSOLUTE AUTO 0.67 K/mm3 (0.84-5.20); LYMPHOCYTES PERCENT AUTO 4 % (21-46); MONOCYTES ABSOLUTE AUTO 0.35 K/mm3 (0.16-1.47); MONOCYTES PERCENT AUTO 2 % (4-13); Mean Corpuscular HGB 28.8 pg (26.0-34.0); Mean Corpuscular HGB Conc 32.8 g/dL (31.5-36.5); Mean Corpuscular Volume 88 fL (80-100); Mean Platelet Volume 9.3 fL (9.1-12.4); NEUTROPHILS PERCENT AUTO 90 % (41-73); Platelet Count 386 K/mm3 (150-400); RDW Coefficient Variation 15.2 % (11.7-14.2); RDW Standard Deviation 48.5 fL (35.1-46.3); Red Blood Cell Count 4.03 M/mm3 (4.30-5.90); White Blood Cell Count 15.24 K/mm3 (4.00-11.30)
[2020-06-25 21:24] LABS: Alanine Aminotransfer (ALT/SGP 24 U/L (12-78); Albumin, Blood 2.9 g/dL (3.4-5.0); Albumin/Globulin Ratio 0.7 (0.8-1.8); Alk Phos 105 U/L (50-136); Anion Gap 8 mmol/L (6-16); Aspartate Aminotrans (AST/SGOT 24 U/L (12-37); Bilirubin, Total 0.3 mg/dL (0.1-1.0); Blood Urea Nitrogen 54 mg/dL (8-24); Bun/Creatinine Ratio 52.4 (12.0-20.0); CO2, Blood 22 mmol/L (21-32); Calcium, Blood 9.8 mg/dL (8.5-10.1); Chloride, Blood 106 mmol/L (98-108); Creatinine, Blood 1.03 mg/dL (0.60-1.20); Globulin, Blood 3.9 g/dL (2.2-4.0); Glomerular Filtration Rate >60 (60-); Glucose, Blood 337 mg/dL (70-99); Potassium, Blood 5.4 mmol/L (3.5-5.5); Sodium, Blood 136 mmol/L (136-145); Total Protein, Blood 6.8 g/dL (6.4-8.2)
[2020-06-25] MEDS ORDERED: CARV3.125 PO (22:01)
[2020-06-25] MEDS ORDERED: BENZ100A PO (22:01)
[2020-06-25] MEDS ORDERED: Prednisone10 MG (22:03)
[2020-06-25] MEDS ORDERED: BACTRIM DS TAB1 EAC6 PO (22:03)
[2020-06-25] MEDS ORDERED: METF500 PO (22:04)
[2020-06-25] MEDS ORDERED: LOSARTAN-HCTZ1 EAC5 PO (22:04)
[2020-06-25] MEDS ORDERED: IPRAT-ALBUT 0.5-3 ML NEB (22:04)
[2020-06-25] MEDS ORDERED: ALBU90OI INH (22:05)
[2020-06-25] MEDS ORDERED: VICTOZA 3-0.6 MG/0.2 SC (22:05)
[2020-06-25] MEDS ORDERED: JARDIANCE25 MG PO (22:05)
[2020-06-25] MEDS ORDERED: AMLO5 PO (22:06)
[2020-06-25] MEDS ORDERED: ATOR80 PO (22:06)
[2020-06-25] MEDS ORDERED: GEMF600 PO (22:06)
[2020-06-25] MEDS ORDERED: GUAIFENESIN ER600 MG PO (22:07)
[2020-06-25] MEDS ORDERED: ASPI325EC PO (22:07)
[2020-06-25 22:54] LABS: PCO2 Arterial 39.4 mmHg (35-45); PO2 Arterial 71.2 mmHg (80-100); pH Blood Arterial 7.36 (7.35-7.45)
--- NOTE | 2020-06-26 04:49 | NUR ---
SHIFT SUMMARY NEW ER ADMIT THIS SHIFT (0010) NO ACUTE CHANGES SINCE ASSUMING CARE, NO C/O ANY KIND, SLEEPING AT THIS TIME, CALL LIGHT IN REACH, WILL CONT TO MONITOR UNTIL REPORT GIVEN TO DAY RN.
--- NOTE | 2020-06-26 15:04 | NUR ---
SPOT URINE PROTEIN CREATININE RATIO CHANGED TO RANDOM INSTEAD. ACCORDING TO LABORATORY YANIRA DUNCAN, DEXTER DOES NOT DO SPOTS. DR. BARNETT INFORMED AND OKAY WITH RANDOM.
--- NOTE | 2020-06-26 15:04 | NUR ---
NPO FOR BRONCHOSCOPY PATIENT TO BE NPO AT MIDNIGHT FOR BRONCHOSCOPY SCHEDULED FOR APPROX. [address] BARNETT.
[2020-06-26 15:19] LABS: Source, Urine Clean Catch
[2020-06-26 15:28] LABS: Bilirubin, Urine Neg (Neg); Blood, Urine Neg (Neg); Glucose Qualitative, Urine 4+ (Neg); Ketones, Urine Neg (Neg); Leukocyte Esterase, Urine Neg (Neg); Nitrite, Urine Neg (Neg); Protein, Urine Neg (Neg); Specific Gravity, Urine 1.015 (1.003-1.022); Urobilinogen, Urine NORM (Normal)
[2020-06-26 15:42] LABS: Creatinine, Urine Random 24.9 mg/dL (27.00-270.00); Protein, Urine Random 9.6 mg/dL (0.0-11.9); Protein/Creat Ratio, Ur Random 0.4
[2020-06-26 15:44] LABS: Appearance, Urine Clear (Clear); Color, Urine Pale Yellow (P-Yellow)
--- NOTE | 2020-06-26 17:10 | NUR ---
Shift Summary A/Ox4, flat and disgruntled affect. Patient reports being fed up with illness. Worked with PT today, made independent in room. Uses urinal at bedside independently. Second dose of 100+400 mg IV steroid given. With activity, patient sats dropped to mid 80's. Per Dr. Hendrickson, patient given Xarelto for DVT prophylaxis, no changes will be made to this. Scheduled for bronchoscopy tomorrow @ 10:00 am. To be NPO at midnight. Currently on 7L O2 at rest. in to see patient this afternoon. No acute changes, WCTM.
--- NOTE | 2020-06-27 03:45 | NUR ---
OPERATOR PREFINISH SUMMARY A/O X4, INDEPENDENT TO BATHROOM. DENIES PAIN. CURRENTLY ON 7L VIA NC WITH SATS GREATER THAN 90. CONTINUES TO BE TACHYEPNIC AND DYSPENIC WITH EXERTION. PLAN IS FOR BRONCHOSCOPY THIS AM, WILL REQUEST ORDER FOR RAPID COVID AND SEND TO LAB. VSS, NO ACUTE CHANGES AT THIS TIME. BED IN LOWEST POSITION WITH CALL LIGHT IN REACH. WILL CONTINUE TO MONITOR AND REPORT TO ONCOMING RN.
--- NOTE | 2020-06-27 04:35 | NUR ---
PRE PROCEDURE COVID SCREENING EXPLAINED HOSPITAL POLICY FOR PRE PROCEDURE SCREENINGS FOR COVID. PT REFUSES AT THIS TIME.
[2020-06-27 05:06] LABS: Albumin, Blood 2.9 g/dL (3.4-5.0); Anion Gap 6 mmol/L (6-16); Blood Urea Nitrogen 54 mg/dL (8-24); Bun/Creatinine Ratio 51.9 (12.0-20.0); CO2, Blood 27 mmol/L (21-32); Calcium, Blood 9.4 mg/dL (8.5-10.1); Chloride, Blood 104 mmol/L (98-108); Creatinine, Blood 1.04 mg/dL (0.60-1.20); Glomerular Filtration Rate >60 (60-); Glucose, Blood 216 mg/dL (70-99); Phosphorus, Blood 3.8 mg/dL (2.5-4.9); Potassium, Blood 4.4 mmol/L (3.5-5.5); Sodium, Blood 137 mmol/L (136-145)
[2020-06-27 07:08] LABS: COMPLEMENT C3, SERUM 120 mg/dL (82-167); COMPLEMENT C4, SERUM 30 mg/dL (12-38)
[2020-06-27 08:37] LABS: Influenza A, PCR NEGATIVE (NEGATIVE); Influenza B, PCR NEGATIVE (NEGATIVE); Resp Syncytial Virus, PCR NEGATIVE (NEGATIVE); SARS-Cov-2 (COVID-19) PCR, MMC NEGATIVE (NEGATIVE)
[2020-06-27 09:08] LABS: HBSAG SCREEN Negative (Negative); HEP B CORE AB, TOT Negative (Negative); HEP C VIRUS AB <0.1 (0.0-0.9)
--- NOTE | 2020-06-27 10:03 | NUR ---
06/27/20 1003 Lucia Galindo History, Chart, Medications and Allergies reviewed before start of procedure. Patient confirms NPO status and agrees with scheduled surgery. 2% LIDOCAINE JELLY WITH 5 DROPS ENEDINA-SYNEPHRINE 0.5% APPLIED TO BILATERAL NARES WITH COTTON TIP APPLICATOR. 2% LIDOCAINE SOLUTION SPRAYED TO OROPHARYNX USING ATOMIZATION DEVICE UNTIL GAG REFLEX GONE.
--- NOTE | 2020-06-27 13:00 | NUR ---
Brief visit with Pt this AM before procedure. Engaged in therapeutic discussion regarding code status. Educated on life sustaining measures including risk factors and implications. Pt reports wishes to be full code. Day surgery arrives to transport Pt for procedure. Had ling therapeutic discussion with Pt's spouse Deirdre in waiting room. Offered therapeutic listening and answered questions. Deirdre reports struggling emotionaly and suffers from PTSD. Cris reports wanting MD to have direct and forward discussions regarding Pt's prognosis. Continued therapeutic listening and discussed the importance of self care. Dr Vieyra arrives and discusses outcome of precedure and answers questions. Deirdre expresses appreciation and requests for this RN to be present when Dr Vieyra discusses options moving forward. No other concerns reported at this time. Palliative Care will remain available.
--- NOTE | 2020-06-27 16:55 | NUR ---
SHIFT SUMMARY PT AWAKE AT START OF SHIFT. PER SHIFT REPORT, PT REFUSING STAT COVID TEST NEEDED FOR BRONCH PROCEDURE THIS AM. DISCUSSED WITH PT, WHO THEN AGREED TO COVID TEST. PT NPO FOR BRONCHOSCOPY. DR OLMEDO IN TO SEE PT PRIOR TO BEING TAKEN DOWN. PT TOLERATED PROCEDURE WELL. LAB CALLED SEVERAL TIMES TO CLARIFY FLUID COLLECTION ORDERS. DR BARNETT NOTIFIED TO CALL LAB FOR CLAIRIFICATION. DR OLMEDO HERE AGAIN LATER TO SEE PT AND . PT INSTRUCTED TO REMAIN NPO AFTER BRONCH LAVAGE FOR 2 HRS D/T RECEIVING LIDOCAINE. PT THEN ABLE TO TOLERATE WATER AND FOOD W/O DIFFICULTY. PT DECLINING MOST OF LUNCH, BUT DID EAT WHAT FOOD FAMILY BROUGHT IN. REMAINS AT BS. PT REMAINS ON 8L HIGH FLOW NC. RT MANAGING. CALL LT IN REACH.
[2020-06-27 20:30] LABS: Other Cells, BAL 1 % (0-1)
--- NOTE | 2020-06-28 04:21 | NUR ---
SUMMARY NO NEW ISSUES NOTED. PT HAS BEEN RESTING THROUGHOUT SHIFT. PT DENIES INCREASED SOB. PT REMAINS ON O2. PT CURRENTLY AWAKE WATCHING TV AND IN NO DISTRESS. CALL LIGHT IN REACH.
--- NOTE | 2020-06-28 13:59 | NUR ---
Supportive visit this afternoon while Dr Vieyra discusses plan of care for present and for future. Options discussed with Pt reporting being in agreement with Dr Vieyra recommendations. Pt reports no concerns at this time. Palliative Care will remain available.
--- NOTE | 2020-06-29 03:53 | NUR ---
NURSING TEACHER SUMMARY A/OX4, PLEASANT AND COOPERATIVE WITH CARE. DENIES PAIN AT THIS TIME. CURRENTLY ON 7L WITH SATS GREATER THAN 92. SLEPT T/O NIGHT. VSS, NO ACUTE CHANGES AT THIS TIME. BED IN LOWEST POSITION WITH CALL LIGHT IN REACH. WILL CONTINUE TO MONITOR AND REPORT TO ONCOMING RN.
[2020-06-29 05:41] LABS: Albumin, Blood 2.6 g/dL (3.4-5.0); Anion Gap 5 mmol/L (6-16); Blood Urea Nitrogen 55 mg/dL (8-24); Bun/Creatinine Ratio 53.4 (12.0-20.0); CO2, Blood 26 mmol/L (21-32); Calcium, Blood 9.3 mg/dL (8.5-10.1); Chloride, Blood 108 mmol/L (98-108); Creatinine, Blood 1.03 mg/dL (0.60-1.20); Glomerular Filtration Rate >60 (60-); Glucose, Blood 162 mg/dL (70-99); Phosphorus, Blood 3.2 mg/dL (2.5-4.9); Potassium, Blood 4.1 mmol/L (3.5-5.5); Sodium, Blood 139 mmol/L (136-145)
[2020-06-29 11:04] LABS: PCO2 Arterial 41.4 mmHg (35-45); PO2 Arterial 80.6 mmHg (80-100)
--- NOTE | 2020-06-29 12:52 | NUR ---
Spiritual care visit conducted. Patient is sitting up in bed and alert. I ask patient how he is doing and his opnening statement is, "I'm dying." I very deep conversation then took place regarding past regrets, personal concerns, worries about his family and fears about the dying process. I normalize patient's experience and help patient through issues of reconciliation and forgiveness. We talk about what finishing well looks like and I provide pastoral ip counsel and prayer. Patient responds well and shows signs of catharsis and increased peace. I will continue to remain available.
[2020-06-29 13:10] LABS: ANTIGLOMERULAR BM AB 3 units (0-20)
--- NOTE | 2020-06-29 17:03 | NUR ---
RITUXIMAB INFUSION NEW 20 G IV PLACED RFA, FLUSHES EASILY AND GOOD BLOOD RETURN. REVIEWES S/SX OF POSSIBLE ADVERSE REACTION WITH PT AND SPOUSE, PT EDUCATION HANDOUT PROVIDED. PT VERB UNERSTANDING. VSS. PRE MEDS ADMINISTERED ORDERED. RITUXIMAB STARTED WILL TITRATED TOLERATED
--- NOTE | 2020-06-29 17:41 | NUR ---
SHIFT SUMMARY PT APPEARS VERY FLAT & WITHDRAWN TODAY. WHEN ASKED PT DENIES PAIN OR DISCOMFORT, DISPITE APPEARING UNCOMFORTABLE AT TIMES. PT RECIEVED BREATHING TREATMENTS PRN TODAY. SATING IN THE 90S ON 7L O2 VIA NC. LONG CONVERSATION WITH PTS , WILLARD, INCLUDING PT UPDATE & PLAN OF CARE OCCURED TODAY. RITUXIMAB STARTED TODAY BY LILA BARROS RN. PT & PLEASED WITH THIS. PT TOLERATING INFUSION THUS FAR. PT TO FOLLOW UP WITH DR. BARNETT AN OUTPT PER DR. STEVENS NOTE. VS REVIEWED. NO OTHER ACUTE CHANGES IN ASSESSMENT AT THIS TIME. PT RESTING IN BED, WITH EYES CLOSED. CALL LIGHT IN REACH. DENIES ANY NEEDS AT THIS TIME, INCLUDING PAIN.
--- NOTE | 2020-06-29 19:23 | NUR ---
RITUXIMAB INFUSION WASNT RUNNING EXPECTED, NS WAS INFUSING INSTEAD. INFUSION STARTED. IV SITE PATENT. VSS.
--- NOTE | 2020-06-29 23:46 | NUR ---
06/29/20 2335 Rituximab ABBS was administered as directed. Infusion started at 1925 at 50 mg /hr which is 42 ml/hr. Medication was increased q 30 minutes as directed. Patient vital signs have been stable. Pt has been able to doze on and off. No s/s of reaction at this time. IV site is patent and free of redness or irritation. Pt up to BR after infusion complete, wanting something to eat. Report to primary RN.
--- NOTE | 2020-06-30 03:20 | NUR ---
GERIATRIC NURSE SUMMARY A/OX4, INDEPENT TO BATHROOM. CURRENTLY ON 7L WITH SATS GREATER THAN 90. FINISHED FIRST DOSE OF RITUXIMAB THIS SHIFT. VSS, NO ACUTE CHANGES AT THIS TIME. BED IN LOWEST POSITION WITH CALL LIGHT IN REACH. WILL CONTINUE TO MONITOR AND REPORT TO ONCOMING RN.
[2020-06-30 05:44] LABS: Albumin, Blood 2.5 g/dL (3.4-5.0); Anion Gap 5 mmol/L (6-16); Blood Urea Nitrogen 43 mg/dL (8-24); Bun/Creatinine Ratio 50.1 (12.0-20.0); CO2, Blood 25 mmol/L (21-32); Calcium, Blood 8.9 mg/dL (8.5-10.1); Chloride, Blood 109 mmol/L (98-108); Creatinine, Blood 0.86 mg/dL (0.60-1.20); Glomerular Filtration Rate >60 (60-); Glucose, Blood 131 mg/dL (70-99); Phosphorus, Blood 2.7 mg/dL (2.5-4.9); Potassium, Blood 4.1 mmol/L (3.5-5.5); Sodium, Blood 139 mmol/L (136-145)
--- NOTE | 2020-06-30 11:01 | NUR ---
Brief Palliative Care visit with pt. I have met pt's and spoken to at [facility] during pt's previous hospital stay. Pt has no visitors at this time. His RN is administering am medications. Pt received his first rituximab infusion yesterday evening. He and his nurse report he is being discharged home today. Pt asked me some questions re: expectations with new tx r/t getting better. I advised that each individual responds to tx differently and that when treatment complete, Drs will have a better idea of his response, expectations, prognosis for him. We discussed what matters most is how pt feels and how tx helps him function and live better vs. what he looks like on paper with future testing. Pt is very happy to be heading home and I agreed with him that this was a celebratory event. I invited him and/or his to contact us in the future. Pt anticipates getting follow up infusions at the [facility] as per plans discussed with his Residence Hall Director on Monday.
[2020-06-30] MEDS ORDERED: ACET325 PO (11:55)
[2020-06-30] MEDS ORDERED: BASAGLAR K100 UNIT/1 SC (11:56)
[2020-06-30] MEDS ORDERED: Rituxan10 MG/ML IV (11:56)
[2020-06-30] MEDS ORDERED: HUMALOG JU100 UNIT/2 (11:57)
[2020-06-30] MEDS ORDERED: MELATONIN5 M1 PO (11:58)
[2020-06-30] MEDS ORDERED: LOSA50 PO (11:58)
[2020-06-30] MEDS ORDERED: PANT20 PO (11:58)
[2020-06-30 14:12] LABS: ANA DIRECT Negative (Negative); ANTIMYELOPEROXIDASE (MPO) ABS <9.0 U/mL (0.0-9.0); ANTIPROTEINASE 3 (PR-3) ABS <3.5 U/mL (0.0-3.5); ATYPICAL PANCA <1:20 titer (Neg:<1:20); CYTOPLASMIC (C-ANCA) <1:20 titer (Neg:<1:20); PERINUCLEAR (P-ANCA) <1:20 titer (Neg:<1:20)
--- NOTE | 2020-06-30 15:30 | NUR ---
Returned to pt's room by request of pt, and RN. RN was reviewing dc instructions/orders with both pt, and CM. at bedside and had been crying. Pt appears more anxious than earlier this am. Time spent listening and validating concerns. Then we reviewed d/c instructions that pt and were confused about, in particular sliding scale for insuling and blood glucose testing. Pt will have HH RN for f/u also. Pt verbalized that he feels comfortable administering insulin to himself. They were just worried about the sliding scale coverage. We reviewed again in detail and clarified with RN also. Pt's PCP called in an order for a glucose monitor/patch to pharmacy. Pt and also wanted to talk about new treatment and fears of no improvement. They appear to be experiencing anticipatory grief and both are tearful in expressing their feelings. I listened and encouraged continued sharing of what is important. I encouraged them to be hopeful and give the treatment a chance to work. They questioned whether he wanted to continue it and I strongly encouraged them to follow the treatment plan with the hope of improvement in quality of life and s/s. and pt stated they felt better about treatment after our conversation. I encouraged them to ask questions of their providers and to know that a team of providers were following, making recommendations both locally and their local doctors in consultation with [facility] specialists. I again invited them to contact us in the future to talk about whatever they felt they would like to. Report given to pt's RN on my visit. went to pharmacy and RT arrived for O2 eval as I was leaving.
--- NOTE | 2020-06-30 16:05 | NUR ---
PT AxOx[facility]. COOPERATIVE WITH CARE. PT DC'ING TODAY TO HOME WITH . PHOTOGRAPHY INTERN, NIDIA GONZALES INVOLVED IN DISCHARGE PLANS. DISCHARGE INSTRUCTIONS DISCUSSED WITH PATIENT AND PT'S INCLUDING FOLLOW UP APPTS FOR RITUXIMAB INFUSIONS, PNEUMO REFERRAL AND DC MEDS. PT ALSO GIVEN EXTENSIVE EDUCATION ON BLOOD GLUCOSE MONITOR, INSULIN INSTRUCTIONS AND USE. HOME O2 EVAL PERFORMED PRIOR TO DC. [facility] WILL COME TO PATIENT'S HOME IN THE AM TO FULFILL NEW ORDERS. VITALS REVIEWED. PT DENIES ANY PAIN THIS SHIFT. INDEPENDENT IN THE ROOM. PT AND VERBALIZE UNDERSTANDING. DENIES ANY FURTHER QUESTIONS AT THIS TIME. PT SAFELY ESCORTED OUT VIA WC WITH AND FLEET DIRECTOR.
[2020-06-30 18:06] LABS: QUANTIFERON TB1 AG VALUE 0.03 IU/mL (.); QUANTIFERON TB2 AG VALUE <0.00 IU/mL (.); QUANTIFERON-TB GOLD PLUS Negative (Negative)
[2020-07-15 17:07] LABS: ANTIPHOSPHATIDYLSERINE IGG 0 GPS (.); ANTIPHOSPHATIDYLSERINE IGM 1 MPS (.); APTT 25.4 sec (.); DRVVT CONFIRM SECONDS 41.2 sec (.); DRVVT RATIO 1.2 ratio (.); DRVVT SCREEN SECONDS 53.9 sec (.); HEXAGONAL PHOSPHOLIPID NEUTRAL 0 sec (.)
== END 2020-06-30 16:11 | disposition home or self-care (01) | DRG 299 ==
LOC: ER 18:07 → MEDS 23:14
PROVIDERS: Emergency Medicine; Internal Medicine; Internal Medicine Pulmonary Disease; Physician Assistant; ADMIT Internal Medicine
PROC: 0B9D8ZX Drainage of Right Middle Lung Lobe, Via Natural or Artificial Opening Endoscopic, Diagnostic (ICD-10-PCS; principal; 2020-06-27 10:00)
DX: I77.89 Other specified disorders of arteries and arterioles (principal); J96.21 Acute and chronic respiratory failure with hypoxia; R04.89 Hemorrhage from other sites in respiratory passages; J84.89 Other specified interstitial pulmonary diseases; I10 Essential (primary) hypertension; E78.5 Hyperlipidemia, unspecified; J33.9 Nasal polyp, unspecified; Z20.822 Contact with and (suspected) exposure to COVID-19; K21.9 Gastro-esophageal reflux disease without esophagitis; E11.65 Type 2 diabetes mellitus with hyperglycemia; G47.00 Insomnia, unspecified; T38.0X5A Adverse effect of glucocorticoids and synthetic analogues, initial encounter; Z90.49 Acquired absence of other specified parts of digestive tract; Z98.890 Other specified postprocedural states; Z86.010 Personal history of colon polyps; Z79.84 Long term (current) use of oral hypoglycemic drugs; Z87.891 Personal history of nicotine dependence; Z98.52 Vasectomy status; Z98.42 Cataract extraction status, left eye; Z98.41 Cataract extraction status, right eye; Z79.82 Long term (current) use of aspirin; Z79.899 Other long term (current) drug therapy; Z79.52 Long term (current) use of systemic steroids
CPT/HCPCS: 0241U; 36415; 36600; 71045; 80053; 80069; 81003; 82375; 82570; 82803; 82947; 83516; 83520; 84156; 85025; 85597; 85613; 85730; 85732; 86038; 86146; 86147; 86148; 86160; 86256; 86317; 86480; 86704; 86708; 86803; 86849; 87070; 87205; 87340; 88108; 88312; 88313; 94640; 94760; 94761; 96374; 97110; 97162; 99285-25; A9270; A9270-GY; C9113; J0171; J1200; J1650; J2250; J2930; J3010; J7040; J7050; J7120; Q5115